=== PATIENT | female | born 1970 | race Caucasian/White ===

== ENCOUNTER → 2017-01-08 | Outpatient (CLI) | payer BC, OTHER ==
[~2017-01-08] MED LIST: ASPIRIN CHEWABL81 MG PO; FISH OIL 1,0001 EAC4 PO; HUMALOG INSULIN PUMP SC; LASIX40 MG PO; NEURONTIN 300300 MG PO; NORCO 7.5-3251 EACH PO; POTASSIUM CHLO20 ME1 PO; SYNTHROID300 MCG PO; TRAMADOL HCL50 MG PO
== END ==
LOC: US 10:03
DX: R19.00 Intra-abdominal and pelvic swelling, mass and lump, unspecified site (principal); Z90.49 Acquired absence of other specified parts of digestive tract
CPT/HCPCS: 76700

== ENCOUNTER → 2017-02-01 | Day surgery (SDC) | payer BC ==
[~2017-02-01] VITALS: Ht 162.6 cm; Wt 88.9 kg
== END | disposition home or self-care (01) ==
LOC: OR 08:06
PROVIDERS: Internal Medicine Gastroenterology
PROC: 0DJ08ZZ Inspection of Upper Intestinal Tract, Via Natural or Artificial Opening Endoscopic (ICD-10-PCS; principal; 2017-02-01 12:15)
DX: T18.2XXA Foreign body in stomach, initial encounter (principal); R14.0 Abdominal distension (gaseous); E11.43 Type 2 diabetes mellitus with diabetic autonomic (poly)neuropathy; K31.84 Gastroparesis; E11.9 Type 2 diabetes mellitus without complications; E66.9 Obesity, unspecified; Z85.850 Personal history of malignant neoplasm of thyroid; Z79.82 Long term (current) use of aspirin; Z79.899 Other long term (current) drug therapy; Z90.710 Acquired absence of both cervix and uterus; Z90.49 Acquired absence of other specified parts of digestive tract; Y83.8 Other surgical procedures as the cause of abnormal reaction of the patient, or of later complication, without mention of misadventure at the time of the procedure
CPT/HCPCS: 82962; J1815; J2250; J3010; J7030

== ENCOUNTER → 2020-12-24 | Outpatient (CLI) | payer OTHER ==
[~2020-12-24] MED LIST changes: +APIDRA100 UNIT/1 SQ; +BASAGLAR; +BASAGLAR SC; -HUMALOG INSULIN PUMP SC; +LIPITOR TAB 2020 MG PO; +PROTONIX40 MG PO; +TIROSINT100 MCG PO
== END ==
LOC: OPSV 13:00
DX: D50.9 Iron deficiency anemia, unspecified (principal)
CPT/HCPCS: 96365; J1439; J7030